=== PATIENT | female | born 1950 | race Hispanic/Latino ===

== ENCOUNTER 2020-09-19 10:15 | Outpatient (CLI) | payer MEDICARE, OTHER ==
--- NOTE | 2020-09-19 14:53 | Nuclear Medicine Report ---
NM bone scan whole body INDICATION / CLINICAL INFORMATION: UNSPECIFIED FRACTURE OF FIFTH LUMBAR VERTEBRA. TECHNIQUE: Dose / Agent / Route: 25.0 mCi technetium MDP, IV COMPARISON: No relevant prior imaging study available. FINDINGS: Increased uptake is demonstrated in the lower lumbar spine, specifically L4-S1, more prominent on the left. Left hip prosthesis and right knee prosthesis. Mild degenerative changes in both shoulders. IMPRESSION: 1. Uptake in the lower lumbar spine could well be due to hypertrophic degenerative change. Suggest co rrelation with plain radiograph. Signer Name: Ry Chiu MD Signed: 09/19/2020 2:49 PM Workstation Name: [id number]
== END 2020-09-19 10:16 | disposition home or self-care (01) ==
LOC: NM 10:15
PROVIDERS: ATTEND Orthopaedic Surgery
DX: S32.059A Unspecified fracture of fifth lumbar vertebra, initial encounter for closed fracture (principal); M19.012 Primary osteoarthritis, left shoulder; M19.011 Primary osteoarthritis, right shoulder; M47.816 Spondylosis without myelopathy or radiculopathy, lumbar region; Z96.642 Presence of left artificial hip joint; Z96.651 Presence of right artificial knee joint; X58.XXXA Exposure to other specified factors, initial encounter; Y93.89 Activity, other specified; Y92.89 Other specified places as the place of occurrence of the external cause; Y99.8 Other external cause status
CPT/HCPCS: 78306; A9503